=== PATIENT | female | born 1955 | race Caucasian/White ===

== ENCOUNTER → 2020-10-02 | Outpatient (CLI) | payer OTHER ==
[~2020-10-02] MED LIST: ASPIRIN EC325 MG PO; CALCIUM500 MG PO; CRANBERRY PO; CRESTOR10 MG PO; DHEA 10 MG TAB1 EACH PO; DHEA25 M1 PO; DIFLUCAN150 MG PO; FAMOTIDINE20 MG PO; FLONASE 0.05% N16 GM; LEVOFLOXACIN750 MG PO; LISINOPRIL20 MG PO; LORATADINE10 MG PO; OSTEO BI-FLEX1 EACH PO; OXYCODON-ACETA1 EAC1 PO; PRILOSEC20 MG PO; PRINIVIL20 MG PO; PROBIOTIC PO; SIMVASTATIN10 MG PO; ST. JOSEPH ASPI81 M1 PO; TUMERIC CURCUMIN PO; TYLENOL EXTRA500 MG PO; VITAMIN C 500500 MG PO; VITAMIN D22000 UNIT PO; VITAMIN D310 MC1 PO; VITAMIN E100 UNI2 PO; ZANTAC150 MG PO; [UNRECOGNIZED DRUG - OTHER] PO
[2020-10-02 10:00] LABS: HEMOGLOBIN 13.4 gm/dl (12.3-15.3); RED BLOOD COUNT 4.41 M/UL (4.00-5.10); WHITE BLOOD COUNT 4.8 K/UL (4.5-11.0)
== END ==
LOC: LAB 09:18
PROVIDERS: Family Medicine
DX: I10 Essential (primary) hypertension (principal); E78.2 Mixed hyperlipidemia
CPT/HCPCS: 36415; 80053; 80061; 85027

== ENCOUNTER → 2020-11-05 | Outpatient (CLI) | payer OTHER ==
[2020-11-06 10:12] LABS: VITAMIN D, 25-HYDROXY 46.9 ng/mL (30.0-100.0)
[2020-11-06 11:12] LABS: RHEUMATOID ARTHRITIS FACTOR <10.0 IU/mL (0.0-13.9)
[2020-11-06 23:07] LABS: CCP ANTIBODIES IGG/IGA 4 units (0-19)
== END ==
LOC: LAB 11:10
PROVIDERS: Nurse Practitioner Family
DX: M19.90 Unspecified osteoarthritis, unspecified site (principal)
CPT/HCPCS: 85652; 86140; 86200; 86431

== ENCOUNTER → 2020-12-17 | Outpatient (CLI) | payer OTHER | LOC: LAB 13:58 | PROVIDERS: Family Medicine | DX: I10 Essential (primary) hypertension (principal) | CPT/HCPCS: 80048 ==

== ENCOUNTER → 2020-12-18 | Outpatient (CLI) | payer OTHER | LOC: EXRD 10:02 | DX: Z78.0 Asymptomatic menopausal state (principal); M85.80 Other specified disorders of bone density and structure, unspecified site; M85.88 Other specified disorders of bone density and structure, other site; Z13.820 Encounter for screening for osteoporosis | CPT/HCPCS: 77080 ==

== ENCOUNTER → 2021-01-26 | Outpatient (CLI) | payer OTHER ==
[2021-01-26 08:23] LABS: RED BLOOD COUNT 4.5 M/UL (4.00-5.10); WHITE BLOOD COUNT 6.3 K/UL (4.5-11.0)
[2021-01-26 08:40] LABS: BUN/CREATININE RATIO 22 (0-10)
== END ==
LOC: OPSV2 07:39 → EDSTATUS 08:00
PROVIDERS: Orthopaedic Surgery
DX: Z01.818 Encounter for other preprocedural examination (principal); M17.11 Unilateral primary osteoarthritis, right knee
CPT/HCPCS: 36415; 71046; 80048; 81001; 85025; 87077; 87081; 87086; 87186; 93005

== ENCOUNTER → 2021-02-04 | Outpatient (CLI) | payer OTHER ==
[2021-02-04 09:40] LABS: BUN/CREATININE RATIO 20 (0-10)
== END ==
LOC: LAB 08:00
PROVIDERS: Orthopaedic Surgery
DX: Z01.812 Encounter for preprocedural laboratory examination (principal)
CPT/HCPCS: 36415; 80048; 86850; 86900; 86901

== ENCOUNTER 2021-02-05 06:59 | Day surgery (SDC) | payer OTHER ==
[~2021-02-05] VITALS: Ht 170.2 cm; Wt 83.0 kg
[~2021-02-05 06:59] MED LIST changes: -ASPIRIN EC325 MG PO; -FAMOTIDINE20 MG PO; -LORATADINE10 MG PO; -OSTEO BI-FLEX1 EACH PO; -OXYCODON-ACETA1 EAC1 PO; -ST. JOSEPH ASPI81 M1 PO; -TUMERIC CURCUMIN PO; -TYLENOL EXTRA500 MG PO; -VITAMIN D310 MC1 PO; -VITAMIN E100 UNI2 PO
[2021-02-05] MEDS ORDERED: VITAMIN D310 MC1 PO (08:56)
[2021-02-05] MEDS ORDERED: LORATADINE10 MG PO (08:58)
[2021-02-05] MEDS ORDERED: FAMOTIDINE20 MG PO (08:58)
[2021-02-05] MEDS ORDERED: ST. JOSEPH ASPI81 M1 PO (08:58)
[2021-02-05] MEDS ORDERED: VITAMIN E100 UNI2 PO (08:59)
[2021-02-05] MEDS ORDERED: TUMERIC CURCUMIN PO (08:59)
[2021-02-05] MEDS ORDERED: OSTEO BI-FLEX1 EACH PO (08:59)
[2021-02-05] MEDS ORDERED: TYLENOL EXTRA500 MG PO (09:00)
[2021-02-05] MEDS ORDERED: OXYCODON-ACETA1 EAC1 PO (13:16)
[2021-02-05] MEDS ORDERED: ASPIRIN EC325 MG PO (13:16)
[2021-02-06 03:40] LABS: HEMOGLOBIN 11.5 gm/dl (12.3-15.3); RED BLOOD COUNT 3.72 M/UL (4.00-5.10); WHITE BLOOD COUNT 9.1 K/UL (4.5-11.0)
[2021-02-06 03:59] LABS: BUN/CREATININE RATIO 14 (0-10)
== END 2021-02-06 16:51 | disposition home or self-care (01) ==
LOC: M/S 06:59 → OR 06:59 → EDSTATUS 09:45 → M/S 16:09 → OR 02-06 16:51
PROVIDERS: Orthopaedic Surgery
DX: M17.11 Unilateral primary osteoarthritis, right knee (principal); M22.41 Chondromalacia patellae, right knee; I12.9 Hypertensive chronic kidney disease with stage 1 through stage 4 chronic kidney disease, or unspecified chronic kidney disease; N18.9 Chronic kidney disease, unspecified; E78.5 Hyperlipidemia, unspecified; K44.9 Diaphragmatic hernia without obstruction or gangrene; M19.90 Unspecified osteoarthritis, unspecified site; Z83.3 Family history of diabetes mellitus; Z82.49 Family history of ischemic heart disease and other diseases of the circulatory system; Z82.3 Family history of stroke; Z90.49 Acquired absence of other specified parts of digestive tract; Z88.2 Allergy status to sulfonamides; Z88.1 Allergy status to other antibiotic agents; Z79.82 Long term (current) use of aspirin; Z79.899 Other long term (current) drug therapy
CPT/HCPCS: 36415; 73560; 80048; 85027; 97110; 97116; 97162; 97165; C1713; C1776; J0171; J0690; J1100; J2001; J2270; J2405; J2704; J2795; J7030; J7120

== ENCOUNTER → 2021-07-08 | Outpatient (CLI) | payer OTHER ==
[~2021-07-08] MED LIST changes: +ASPIRIN EC325 MG PO; +FAMOTIDINE20 MG PO; +LORATADINE10 MG PO; +OSTEO BI-FLEX1 EACH PO; +OXYCODON-ACETA1 EAC1 PO; +ST. JOSEPH ASPI81 M1 PO; +TUMERIC CURCUMIN PO; +TYLENOL EXTRA500 MG PO; +VITAMIN D310 MC1 PO; +VITAMIN E100 UNI2 PO
== END ==
LOC: MAMO 06-26 09:30
DX: Z12.31 Encounter for screening mammogram for malignant neoplasm of breast (principal)
CPT/HCPCS: 77063; 77067

== ENCOUNTER → 2021-09-15 | Outpatient (CLI) | payer OTHER | LOC: EXRD 08:30 | DX: R79.89 Other specified abnormal findings of blood chemistry (principal); K76.0 Fatty (change of) liver, not elsewhere classified | CPT/HCPCS: 76700 ==

== ENCOUNTER → 2021-10-22 | Day surgery (SDC) | payer MEDICARE, OTHER ==
[~2021-10-22] MED LIST changes: +ASPIRIN81 MG PO; +CALCIUM 600 +1 EA10 PO; +CRESTOR5 MG PO; +CVS SPECTRAVIT PO; +GLUCOSAMINE HC500 MG PO; +VITAMIN D31250 MCG PO; +ZINC50 M1 PO
== END | disposition home or self-care (01) ==
LOC: OR 06:35
DX: K21.00 Gastro-esophageal reflux disease with esophagitis, without bleeding (principal); K29.50 Unspecified chronic gastritis without bleeding; I10 Essential (primary) hypertension; E78.5 Hyperlipidemia, unspecified; E66.9 Obesity, unspecified; E78.00 Pure hypercholesterolemia, unspecified; Z68.28 Body mass index [BMI] 28.0-28.9, adult; Z79.899 Other long term (current) drug therapy; Z88.2 Allergy status to sulfonamides; Z88.8 Allergy status to other drugs, medicaments and biological substances; Z79.82 Long term (current) use of aspirin; Z85.820 Personal history of malignant melanoma of skin; Z80.0 Family history of malignant neoplasm of digestive organs
CPT/HCPCS: J2001; J2704; J7040

== ENCOUNTER → 2021-12-25 | Outpatient (CLI) | payer MEDICARE, OTHER | LOC: EXRD 10:56 | DX: E04.2 Nontoxic multinodular goiter (principal) | CPT/HCPCS: 76536 ==

== ENCOUNTER → 2022-02-24 | Outpatient (CLI) | payer MEDICARE ==
[2022-02-24 12:39] LABS: BUN/CREATININE RATIO 23 (0-10)
== END ==
LOC: LAB 11:40
PROVIDERS: Family Medicine
DX: E78.2 Mixed hyperlipidemia (principal)
CPT/HCPCS: 36415; 80053; 80061; 83735